=== PATIENT | female | born 1975 | race Hispanic/Latino ===

== ENCOUNTER 2019-02-04 07:59 | Outpatient (CLI) | payer OTHER ==
--- NOTE | 2019-02-04 11:24 | Mammography Report ---
BILATERAL DIGITAL DIAGNOSTIC MAMMOGRAM WITHOUT CAD AND RIGHT BREAST ULTRASOUND HISTORY: A right breast lump near the nipple with inflammation. She is taking antibiotics. She report ed some drainage through a skin opening. COMPARISON: None. FINDINGS: Bilateral Mammogram: Digital CC and MLO views of both breasts demonstrate a predominantly fatty angel [address] st parenchymal pattern. The right breast is larger than the left and there is a retroareolar asymmet ry on the MLO view. No distinct mass and no architectural distortion or suspicious calcifications. No nspecific skin thickening of the right breast. The left breast is negative. Right Breast Ultrasound: Sonographic evaluation of right breast was limited to the nipple areolar co mplex and the retroareolar area there is moderate skin thickening and a relatively solid appearing hy poechoic lesion contiguous to the skin measuring approximately 3.4 x 0.9 cm. The technologist reporte d no movement of echoes within the mass. IMPRESSION Right subareolar mastitis with no drainable abscess. Recommend continuation of antibiotic therapy an d follow-up with a right breast ultrasound if there is no clinical improvement or resolution of sympt oms in one month. If feasible, recommend evaluation by a breast surgeon. BIRADS 2: Benign According to the [employer], yearly mammograms are recommended starting at age 40 and continuing as long as a woman is in good health. Clinical Breast Exams should be part of a period ic health exam-about every 3 years for women in their 20s and 30s and every year for women 40 and ove r. Breast self exam is an option for women starting in their 20s. Any breast change noted on a breast self exam should be reported promptly to the patient's healthcare provider. Breast MRI is recommende d for women with an approximately 20-25% or greater lifetime risk of breast cancer, including women w ith a strong family history of breast or ovarian cancer and women who have been treated for Hodgkin's disease. A negative Mammography report should not discourage follow up or biopsy of a clinically significant f inding and/or abnormality. Dense breast tissue may obscure small neoplasms. Signer Name: Orlando Tripathi MD Signed: 02/04/2019 11:19 AM Workstation Name: [id number]
== END 2019-02-04 08:00 | disposition home or self-care (01) ==
LOC: MAMMO 07:59
PROVIDERS: ATTEND Family Medicine
DX: N61.0 Mastitis without abscess (principal)
CPT/HCPCS: 77066